=== PATIENT | male | born 1935 | race Caucasian/White ===

== ENCOUNTER 2019-01-06 13:59 | Outpatient (CLI) | payer MEDICARE, BC ==
[2019-01-06 14:30] LABS: BASOPHILS % (AUTO) 0.6 % (0.0-2.0); EOSINOPHILS # (AUTO) 0.1 K/uL (0.0-0.7); EOSINOPHILS % (AUTO) 2.7 % (0.0-7.0); HEMATOCRIT 37.6 % (36.7-47.1); HEMOGLOBIN 12.5 g/dL (12.5-16.3); LYMPHOCYTES # (AUTO) 1.1 K/uL (20.0-40.0); LYMPHOCYTES % (AUTO) 20.5 % (20.5-51.5); MEAN CORPUSCULAR HEMOGLOBIN 30.8 uug (23.8-33.4); MEAN CORPUSCULAR HGB CONC 33 g/dL (32.5-36.3); MEAN CORPUSCULAR VOLUME 92.7 fL (73.0-96.2); MONOCYTES # (AUTO) 0.5 K/uL (2.0-10.0); MONOCYTES % (AUTO) 8.8 % (0.0-11.0); NEUTROPHILS # (AUTO) 3.5 K/uL (1.8-8.9); NEUTROPHILS % (AUTO) 67.4 % (38.5-71.5); PLATELET COUNT (AUTO) 161 K/uL (152-348); RED BLOOD CELL COUNT(AUTO) 4.05 MIL/uL (4.06-5.63); WHITE BLOOD COUNT (AUTO) 5.2 K/uL (3.6-10.2)
[2019-01-06 15:15] LABS: BAND % (MANUAL) 10 % (0-10); EOSINOPHILS % (MANUAL) 2 % (0-8); LYMPHOCYTES % (MANUAL) 25 % (20-40); MONOCYTES % (MANUAL) 8 % (2-10); NEUTROPHILS % (MANUAL) 55 % (42-75)
== END 2019-01-06 23:59 | disposition home or self-care (01) ==
LOC: LAB 13:59
DX: M10.9 Gout, unspecified (principal)
CPT/HCPCS: 36415; 70030-TC; 84550; 85025

== ENCOUNTER 2021-08-23 06:53 | Emergency (ER) | payer MEDICARE, BC ==
[~2021-08-23] VITALS: Ht 167.6 cm; Wt 65.8 kg
[2021-08-23] MEDS ORDERED: NEBI2.5T5 PO (07:13)
[2021-08-23] MEDS ORDERED: LOSA25TA27 PO (07:13)
[2021-08-23] MEDS ORDERED: ALLO300T2 PO (07:13)
[2021-08-23] MEDS ORDERED: vitamin D PO (07:13)
[2021-08-23] MEDS ORDERED: ESOM40SU2 PO (07:13)
[2021-08-23] MEDS ORDERED: HYDR25TA4 PO (07:13)
[2021-08-23] MEDS ORDERED: SILD100T PO (07:13)
[2021-08-23] MEDS ORDERED: ATOR40TA PO (07:13)
--- NOTE | 2021-08-23 07:25 | NUR ---
Patient ambulatory, alert and orientedx4 with complaints of laceration on left arm. Active bleeding noted on the affected arm, irrigated and cleaned the wound. Denies nausea/vomiting, chest pain. Vitals stable.
--- NOTE | 2021-08-23 07:30 | NUR ---
MD at bedside, medical screening exam in progress.
[2021-08-23] MEDS ORDERED: LET TOPICAL SOLUTION 8 ML UDC ONE ×2 (07:38→07:42)
[2021-08-23] MEDS ORDERED: LET TOPICAL SOLUTION 8 ML UDC TP ONE (07:45)
[2021-08-23] MEDS ORDERED: LIDOCAINE HCL 1% 20 ML VIAL TP ONE (07:45)
[2021-08-23] MEDS ORDERED: NEOMY/BACITRA/POLYMYXIN B OINT UD PACKET TP ONE ×2 (07:45→07:46)
[2021-08-23] MEDS ORDERED: TDAP DIPH,PERTUSS,TET VAC/PF 0.5 ML DISP.SYRIN IM ONE ×3 (07:45→07:47)
[2021-08-23] MEDS ORDERED: SODIUM BICARBONATE 4.2 % (NEUT) 5 ML VIAL TP ONE (07:45)
[2021-08-23] MEDS ORDERED: LIDOCAINE HCL 1% 20 ML VIAL ONE (07:46)
[2021-08-23] MEDS ORDERED: SODIUM BICARBONATE 4.2 % (NEUT) 5 ML VIAL ONE (07:46)
[2021-08-23] MEDS ORDERED: CEphaleXIN 250 MG CAPSULE ONE (09:53)
[2021-08-23] MEDS ORDERED: CEPH250C PO (09:58)
[2021-08-23 09:59] VITALS: BP 154/70
[2021-08-23] MEDS ORDERED: CEphaleXIN 250 MG CAPSULE PO ONE (10:00)
--- NOTE | 2021-08-23 10:04 | NUR ---
Patient discharged to home in stable condition. Written and verbal after care instructions given to pt and . Patient verbalizes understanding of instructions. Stressed follow up or return to ER for worsening s/s.
[2021-08-23] MEDS ORDERED: ACETAMINOPHEN ES 500 MG TABLET ONE (11:42)
--- NOTE | 2021-08-23 12:28 | NUR ---
pt came back because there was blood on the dressing, the dressing opened, Dr. almazan placed the surgicell and I dressed the wound with non-adhessive, abdominal pad with slight pressure dressing.
--- NOTE | 2021-08-23 12:29 | NUR ---
sling also placed per MD order. pt walked out of er withv stready gait, deneisany nausea or light headed ness. pt accompanied by .
[2021-08-25] MEDS ORDERED: CLINDAMYCIN HCL 150 MG CAPSULE ONE (20:39)
== END 2021-08-23 10:06 | disposition home or self-care (01) ==
LOC: ER 07:06
DX: S51.812A Laceration without foreign body of left forearm, initial encounter (principal); W01.198A Fall on same level from slipping, tripping and stumbling with subsequent striking against other object, initial encounter; Y93.01 Activity, walking, marching and hiking; Y92.018 Other place in single-family (private) house as the place of occurrence of the external cause; I10 Essential (primary) hypertension; M10.9 Gout, unspecified; Z79.899 Other long term (current) drug therapy; E78.5 Hyperlipidemia, unspecified
CPT/HCPCS: 12005; 73090; 90471; 90715; 99283; J3490 ×2; A4663; A9150

== ENCOUNTER 2021-08-25 19:47 | Emergency (ER) | payer MEDICARE, BC ==
[~2021-08-25] VITALS: Ht 167.6 cm; Wt 65.8 kg
[~2021-08-25 19:47] MED LIST: ALLO300T2 PO; ATOR40TA PO; CEPH250C PO; ESOM40SU2 PO; HYDR25TA4 PO; LOSA25TA27 PO; NEBI2.5T5 PO; SILD100T PO; vitamin D PO
[2021-08-25] MEDS ORDERED: CEPH500C2 PO (20:31)
[2021-08-25] MEDS ORDERED: CLIN300C12 PO ×2 (20:31)
[2021-08-25] MEDS ORDERED: CLINDAMYCIN HCL 150 MG CAPSULE PO ONE (20:45)
--- NOTE | 2021-08-25 20:48 | NUR ---
Patient discharged to home in stable condition. Written and verbal after care instructions given. Patient verbalizes understanding of instructions. Stressed follow up or return to ER for worsening s/s.
== END 2021-08-25 20:48 | disposition home or self-care (01) ==
LOC: ER 19:52
DX: S51.812D Laceration without foreign body of left forearm, subsequent encounter (principal); L08.9 Local infection of the skin and subcutaneous tissue, unspecified; W01.198D Fall on same level from slipping, tripping and stumbling with subsequent striking against other object, subsequent encounter; I10 Essential (primary) hypertension; E78.5 Hyperlipidemia, unspecified; Z79.899 Other long term (current) drug therapy
CPT/HCPCS: A4663